=== PATIENT | female | born 1965 | race Caucasian/White ===

== ENCOUNTER 2018-12-05 20:24 | Emergency (ER) | payer OTHER ==
[2018-12-05 20:32] VITALS: BP 98/52; PULSE 73; TEMP 98.7; BMI 18.0
[2018-12-05] MEDS ORDERED: SODIUM CHLORIDE 1,000 ML IV STA (22:02)
[2018-12-05 22:22] LABS: HEMOGLOBIN 11.1 GM/dl (10.7-15.3); MCH 32.4 pg (25.7-33.7); MCHC 33.6 g/dl (32.0-36.0); MEAN CELL VOLUME 96.4 fl (80-96); MEAN PLT VOLUME 8.9 fl (7.5-11.1); PLATELET COUNT 173 K/MM3 (134-434); RBC 3.43 M/mm3 (3.60-5.2); RDW 12.2 % (11.6-15.6); WHITE BLOOD COUNT 15.1 K/mm3 (4.0-10.8)
[2018-12-05 22:44] LABS: ALBUMIN 3.5 g/dl (3.4-5.0); ALK PHOS 42 U/L (45-117); BILIRUBIN,TOTAL 1.5 mg/dl (0.2-1); BLOOD UREA NITROGEN 17 mg/dl (7-18); CALCIUM 8.8 mg/dl (8.5-10); CREATININE 0.6 mg/dl (0.55-1.3); GLUCOSE,RANDOM 130 mg/dl (74-106); SGOT/AST 20 U/L (15-37); SGPT/ALT 16 U/L (13-61); TOT PROT 5.7 g/dl (6.4-8.2)
[2018-12-05 22:57] LABS: PLATELET ESTIMATE ADEQUATE
[2018-12-05 23:07] LABS: ANION GAP 12 MMOL/L (8-16); CHLORIDE 98 mmol/L (98-107); CO2 23 mmol/L (21-32); POTASSIUM 3.7 mmol/L (3.5-5.1); SODIUM 133 mmol/L (136-145)
[2018-12-05 23:28] LABS: INR 1.08 (0.82-1.09); PROTHROMBIN TIME (PATIENT) 12.1 SEC (10.2-13.0)
[2018-12-06] MEDS ORDERED: PIPERACILLIN/TAZOB 4.5 GM 4.5 GM in DEXTROSE 5%-WATER 100 ML IVPB ONE (00:55)
[2018-12-06] MEDS ORDERED: PIPERACILLIN/TAZOBACTAM 4.5 GM VIAL IVPB ONE (01:00)
== END 2018-12-06 01:56 | disposition left against medical advice (07) ==
LOC: FER 20:24
PROC: 3E03329 Introduction of Other Anti-infective into Peripheral Vein, Percutaneous Approach (ICD-10-PCS; principal; 2018-12-05)
PROC: 3E0337Z Introduction of Electrolytic and Water Balance Substance into Peripheral Vein, Percutaneous Approach (ICD-10-PCS; 2018-12-05)
DX: K35.80 Unspecified acute appendicitis (principal); F17.210 Nicotine dependence, cigarettes, uncomplicated
CPT/HCPCS: 36415; 74177-TC; 80053; 81003; 85025; 85610; 99283-25; J7030